=== PATIENT | female | born 1960 | race Caucasian/White ===

== ENCOUNTER 2021-10-10 12:36 | Day surgery (SDC) | payer OTHER ==
[~2021-10-10] VITALS: Wt 90.6 kg
[2021-10-10] MEDS ORDERED: ESCI10 PO (14:13)
[2021-10-10] MEDS ORDERED: AMLO5 PO (14:14)
[2021-10-10] MEDS ORDERED: ATOR40TA PO (14:15)
[2021-10-10] MEDS ORDERED: LOSA50 PO (14:15)
--- NOTE | 2021-10-10 14:52 | NUR ---
10/10/21 1452 Morris [place] History, Chart, Medications and Allergies reviewed before start of procedure. Patient confirms NPO status and agrees with scheduled surgery. 3-LEAD EKG REVIEWED WITH PHYSICIAN PRIOR TO START OF PROCEDURE. MONITOR INTACT WITH CONTINUOUS PULSE OXIMETRY AND INTERMITTENT BP. PATIENT DETERMINED TO BE ASA APPROPRIATE FOR PROPOFOL SEDATION PRIOR TO START OF PROCEDURE BY DR. CHANDLER
--- NOTE | 2021-10-10 15:55 | NUR ---
Patient up to Ambulate independently. Gait steady. Discharge instructions reviewed with patient. Patient verbalizes understanding. Copy given to patient to take home. Patient States Post-Procedure ride home has been arranged. Discharged via wheelchair to private car for ride home.
== END 2021-10-10 22:35 | disposition home or self-care (01) ==
LOC: ORSCMMR 12:36 → ORD 13:45 → ORSCMMR 22:35
PROVIDERS: Internal Medicine Gastroenterology
PROC: 0DBP8ZX Excision of Rectum, Via Natural or Artificial Opening Endoscopic, Diagnostic (ICD-10-PCS; principal; 2021-10-10 13:45)
PROC: 0DBM8ZX Excision of Descending Colon, Via Natural or Artificial Opening Endoscopic, Diagnostic (ICD-10-PCS; principal; 2021-10-10 13:45)
DX: Z12.11 Encounter for screening for malignant neoplasm of colon (principal); Z86.010 Personal history of colon polyps; Z83.71 Family history of colonic polyps; D12.4 Benign neoplasm of descending colon; K62.1 Rectal polyp; K57.30 Diverticulosis of large intestine without perforation or abscess without bleeding; K64.8 Other hemorrhoids; Z79.899 Other long term (current) drug therapy
CPT/HCPCS: 88305; J2704; J7120

== ENCOUNTER 2025-01-30 08:04 | Day surgery (SDC) | payer MEDICARE ==
[~2025-01-30] VITALS: Ht 167.6 cm; Wt 91.1 kg
[~2025-01-30 08:04] MED LIST: AMLO5 PO; ATOR40TA PO; EPINEPhrine HCl 1 MG / ML 30ML Vial ONE; ESCI10 PO; LOSA50 PO; Lidocaine 1%-Epineph 1:200000 30 ML SDV ONE
[2025-01-30] MEDS ORDERED: VITAMIN D310 MC4 (08:35)
[2025-01-30] MEDS ORDERED: HYDCHL25 PO (08:35)
[2025-01-30] MEDS ORDERED: ZYRTEC10 M1 (08:36)
[2025-01-30] MEDS ORDERED: VITAMIN D310 MC5 (08:36)
[2025-01-30] MEDS ORDERED: MONT10T PO (08:36)
[2025-01-30] MEDS ORDERED: Flonase 0.05% N16 GM (08:37)
[2025-01-30] MEDS ORDERED: PRED20 (08:39)
[2025-01-30] MEDS ORDERED: CLAR500 PO (08:39)
[2025-01-30] MEDS ORDERED: ZEPBOUND15 MG/0.5 SC (08:39)
[2025-01-30] MEDS ORDERED: BENADRYL25 MG (08:40)
[2025-01-30] MEDS ORDERED: Tranexamic Acid 100 ML IV ONE (08:48)
[2025-01-30] MEDS ORDERED: FentaNYL Citrate 50 MCG/ML 2 ML Injection ONE (08:57)
[2025-01-30] MEDS ORDERED: Dexamethasone Sod Phos 10 MG/ML 1ML VIAL ONE (08:57)
[2025-01-30] MEDS ORDERED: Ondansetron HCl 2 MG / ML 2ML Vial ONE ×2 (08:57→13:16)
[2025-01-30] MEDS ORDERED: Midazolam HCl 1MG / ML 2ML Vial ONE (08:57)
[2025-01-30] MEDS ORDERED: Rocuronium Bromide 10 MG/ML 5ML Injection IV ONE (08:57)
[2025-01-30] MEDS ORDERED: Sugammadex Sodium 200 MG/2ML SDV (100 MG/ML) ONE (10:49)
--- NOTE | 2025-01-30 11:57 | NUR ---
01/30/25 1157 Ariadne Alonso report received from andry moise
--- NOTE | 2025-01-30 12:23 | NUR ---
01/30/25 1223 Ariadne Alonso PT ASLEEP, AROUSABLE TO VOICE. PT DENIES NAUSEA OR PAIN. STATES SHE IS SLEEPY AND FEELS RELAXED. NO DRAINAGE NOTED ON DRESSING AT THIS TIME.
[2025-01-30 13:35] VITALS: BP 111/70
== END 2025-01-30 13:52 | disposition home or self-care (01) ==
LOC: ORSCSDS 08:04
DX: J32.4 Chronic pansinusitis (principal); J30.89 Other allergic rhinitis; J33.9 Nasal polyp, unspecified; I10 Essential (primary) hypertension; J44.9 Chronic obstructive pulmonary disease, unspecified; E66.9 Obesity, unspecified; Z68.32 Body mass index [BMI] 32.0-32.9, adult; Z79.899 Other long term (current) drug therapy
CPT/HCPCS: 88305; 88311; A9270; C2625; J0165; J1100; J2250; J2405; J2704; J3010; J7120